=== PATIENT | male | born 1945 | race Caucasian/White ===

== ENCOUNTER → 2024-02-01 | Outpatient (CLI) | payer MEDICARE, BC, SELFPAY | END | disposition home or self-care (01) | LOC: SWHD 09:44 | PROVIDERS: PCP Family Medicine; Referring Provider Family Medicine; Visit Provider Student in an Organized Health Care Education/Training Program | DX: L89.154 Pressure ulcer of sacral region, stage 4 (principal); L97.522 Non-pressure chronic ulcer of other part of left foot with fat layer exposed; L97.422 Non-pressure chronic ulcer of left heel and midfoot with fat layer exposed; Z79.84 Long term (current) use of oral hypoglycemic drugs; G82.20 Paraplegia, unspecified | CPT/HCPCS: 97597; A9270 ==

== ENCOUNTER → 2024-02-05 | Outpatient (CLI) | payer MEDICARE, BC, SELFPAY ==
[2024-02-05 10:50] LABS: Basophils % (Auto) 1 % (0-2.5); Eosinophils # (Auto) 0.3 Thou/mm3 (0.0-0.5); Eosinophils % (Auto) 5 % (0-10); Hemoglobin 13.4 g/dL (13.5-16.0); Immature Granulocytes % (Auto) 0 % (0-0); Lymphocytes % (Auto) 31 % (10-50); Mean Corpuscular HGB Conc 31.2 g/dl (31.0-37.0); Mean Corpuscular Hemoglobin 25.4 pg (25.0-35.0); Mean Corpuscular Volume 81 fL (80-100); Monocytes # (Auto) 0.5 Thou/mm3 (0.0-0.8); Monocytes % (Auto) 8 % (0-12); Neutrophils # (Auto) 3.6 Thou/mm3 (1.8-7.7); Neutrophils % (Auto) 56 % (37-80); Nucleated Red Blood Cell % 0 /100 WBC (0); Platelet Count 226 Thou/mm3 (140-440); RDW Standard Deviation 53.3 fL (35.1-43.9); Red Blood Count 5.28 Miln/mm3 (4.50-5.90); White Blood Count 6.5 Thou/mm3 (3.8-10.6)
[2024-02-05 10:57] LABS: Glucose Estimated Average 171 mg/dL (80-131); Hemoglobin A1C 7.6 % Hgb (4.8-6.0)
[2024-02-05 11:21] LABS: Alanine Aminotransferase 13 U/L (10-49); Albumin/Globulin Ratio 1.8 (1.2-2.2); Alkaline Phosphatase 137 U/L (46-116); Anion Gap 8 (7-16); Aspartate Amino Transferase 16 U/L (0-34); BUN/Creatinine Ratio 20 Ratio (12-20); Bilirubin,Total 0.6 mg/dL (0.3-1.2); Blood Urea Nitrogen 16 mg/dL (9-23); Calcium 8.8 mg/dL (8.3-10.6); Calcium (Corrected) 8.8 mg/dL (8.5-10.1); Carbon Dioxide 28.2 mMol/L (20.0-31.0); Cardiac Risk Estimate 3.8 RATIO (4.0-6.7); Chloride 102 mMol/L (98-107); Cholesterol 179 mg/dL (132-200); Creatinine (Component) 0.8 mg/dL (0.6-1.3); Globulin 2.2 gm/dL (2.3-3.5); Glucose 132 mg/dL (74-106); HDL Cholesterol 47 mg/dL (40-60); LDL Cholesterol,Calculated 109 mg/dL (0-130); Osmolality,Calculated 278 (275-295); Potassium 4.4 mMol/L (3.4-5.1); Sodium 138 mMol/L (136-145); Thyroid Stimulating Hormone 1.65 uIU/mL (0.55-4.78); Total Protein 6.2 gm/dL (5.7-8.2); Triglycerides 113 mg/dL (30-150); eGFR > 60 See Note
[2024-02-05 11:27] LABS: T4 (Thyroxine) 7.8 mcg/dL (4.5-10.9)
== END | disposition home or self-care (01) ==
LOC: SLDO 09:51
PROVIDERS: Referring Provider Family Medicine; Visit Provider Family Medicine
DX: E11.65 Type 2 diabetes mellitus with hyperglycemia (principal); I10 Essential (primary) hypertension
CPT/HCPCS: 36415; 80053; 80061; 83036; 84436; 84443; 85025

== ENCOUNTER → 2024-02-15 | Outpatient (CLI) | payer MEDICARE, BC, SELFPAY | END | disposition home or self-care (01) | PROVIDERS: PCP Family Medicine; Referring Provider Family Medicine; Visit Provider Surgery | DX: L89.154 Pressure ulcer of sacral region, stage 4 (principal); L97.422 Non-pressure chronic ulcer of left heel and midfoot with fat layer exposed; L89.892 Pressure ulcer of other site, stage 2; G82.20 Paraplegia, unspecified; I25.10 Atherosclerotic heart disease of native coronary artery without angina pectoris; I10 Essential (primary) hypertension; Z95.1 Presence of aortocoronary bypass graft; H91.90 Unspecified hearing loss, unspecified ear; E11.9 Type 2 diabetes mellitus without complications; Z79.4 Long term (current) use of insulin | CPT/HCPCS: 11042; A9270 ==

== ENCOUNTER → 2024-02-22 | Outpatient (CLI) | payer MEDICARE, BC, SELFPAY | END | disposition home or self-care (01) | LOC: SWHD 08:57 | PROVIDERS: PCP Family Medicine; Referring Provider Family Medicine; Visit Provider Student in an Organized Health Care Education/Training Program | DX: L89.154 Pressure ulcer of sacral region, stage 4 (principal); L97.422 Non-pressure chronic ulcer of left heel and midfoot with fat layer exposed; L89.892 Pressure ulcer of other site, stage 2; G82.20 Paraplegia, unspecified; I25.10 Atherosclerotic heart disease of native coronary artery without angina pectoris; I10 Essential (primary) hypertension; Z95.1 Presence of aortocoronary bypass graft; H91.90 Unspecified hearing loss, unspecified ear; E11.9 Type 2 diabetes mellitus without complications; Z79.4 Long term (current) use of insulin | CPT/HCPCS: 17250; 11042; A9270 ==

== ENCOUNTER → 2024-02-29 | Outpatient (CLI) | payer MEDICARE, BC, SELFPAY | END | disposition home or self-care (01) | LOC: SWHD 10:23 | PROVIDERS: PCP Family Medicine; Referring Provider Family Medicine; Visit Provider Student in an Organized Health Care Education/Training Program | DX: L89.154 Pressure ulcer of sacral region, stage 4 (principal); L97.422 Non-pressure chronic ulcer of left heel and midfoot with fat layer exposed; L89.893 Pressure ulcer of other site, stage 3; G82.20 Paraplegia, unspecified; I25.10 Atherosclerotic heart disease of native coronary artery without angina pectoris; I10 Essential (primary) hypertension; Z95.1 Presence of aortocoronary bypass graft; H91.90 Unspecified hearing loss, unspecified ear; E11.9 Type 2 diabetes mellitus without complications; Z79.4 Long term (current) use of insulin | CPT/HCPCS: 17250; 11043; A9270 ==

== ENCOUNTER → 2024-03-07 | Outpatient (CLI) | payer MEDICARE, BC, SELFPAY | END | disposition home or self-care (01) | LOC: SWHD 10:26 | PROVIDERS: PCP Family Medicine; Referring Provider Family Medicine; Visit Provider Student in an Organized Health Care Education/Training Program | DX: L89.154 Pressure ulcer of sacral region, stage 4 (principal); L97.422 Non-pressure chronic ulcer of left heel and midfoot with fat layer exposed; L89.892 Pressure ulcer of other site, stage 2; G82.20 Paraplegia, unspecified; I25.10 Atherosclerotic heart disease of native coronary artery without angina pectoris; I10 Essential (primary) hypertension; H91.90 Unspecified hearing loss, unspecified ear; E11.9 Type 2 diabetes mellitus without complications; Z79.4 Long term (current) use of insulin | CPT/HCPCS: 11043; 11042; A9270 ==

== ENCOUNTER 2024-03-08 03:18 | Emergency (ER) | payer MEDICARE, BC, SELFPAY ==
[2024-03-08 03:21] VITALS: BMI 27.8
[2024-03-08 03:23] VITALS: BP 105/70; PULSE 101; RESP 19; TEMP 36.7; O2SAT 96
--- NOTE | 2024-03-08 03:57 | PD.EDADULT ---
ED General RME/HPI General Chief complaint: Wound/Laceration Stated complaint: R LEG HEMORRHAGING Time Seen by Provider: 03/08/24 03:28 Arrival date/time: 03/08/24 03:18 RME / HPI RME / HPI narrative: Dr. Saldana?s Main ED Evaluation: 78yo male with a history of CAD, HTN, HLD, DM, paraplegic BIBA from home presents to the ED for a chief complaint of bleeding to his RLE. Patient states he had a debridement to a wound done at his right calf yesterday, reporting the site started bleeding tonight at home. Patient denies any fever, chills, numbness, tingling or any other associated sympoms. Related Data Home Medications ?Medication ?Instructions ?Recorded ?Confirmed baclofen 20 mg tablet 20 mg PO TID #0 mg 01/04/13 07/13/23 docusate sodium 100 mg capsule 200 mg PO BID #0 mg 01/04/13 07/13/23 (Colace) metoprolol succinate 50 mg 50 mg PO DAILY #0 mg 01/04/13 07/13/23 tablet,extended release 24 hr (Toprol XL) pregabalin 100 mg capsule (Lyrica) 100 mg PO TID #0 mg 01/04/13 07/13/23 celecoxib 200 mg capsule (Celebrex) 200 mg PO BID #0 caps 06/20/15 07/13/23 aspirin 81 mg tablet,delayed 81 mg PO DAILY 11/21/17 07/13/23 release (Enid Low Dose Aspirin) esomeprazole magnesium 20 mg 40 mg PO QDAY 11/21/17 07/13/23 capsule,delayed release (Nexium 24HR) niacin 500 mg tablet,extended 500 mg PO DAILY 11/21/17 07/13/23 release 24 hr benazepril 5 mg tablet 5 mg PO QDAY 08/30/22 07/13/23 dapagliflozin propanediol 10 mg 10 mg PO QDAY 08/30/22 07/13/23 tablet (Farxiga) Previous Rx's ?Medication ?Instructions ?Recorded zinc sulfate 50 mg zinc (220 mg) 220 mg (4.4 x 50 mg zinc (220 mg)) 07/17/23 capsule PO QDAY #90 caps Allergies Allergy/AdvReac Type Severity Reaction Status Date / Time bee venom protein (honey bee) Allergy Severe Anaphylaxis Verified 06/06/23 10:46 levofloxacin Allergy Severe MUSCLE/TENDON Verified 06/06/23 10:46 ATROPHY venom-wasp Allergy Severe ANAPHYLATIC Verified 06/06/23 10:46 sulfamethoxazole Allergy Unknown RASH Verified 06/06/23 10:46 trimethoprim Allergy Unknown RASH Verified 06/06/23 10:46 Review of Systems Review of Systems Systems Reviewed: All systems reviewed, normal except as documented Narrative Review of Systems: Gen: No fever, no chills, no weight loss EYES: No discharge, no visual changes, no pain HEENT: No ear pain, no congestion, no sore throat PULM: No shortness of breath, no cough, no congestion CV: No chest pain, no dyspnea on exertion, no palpitations GI: No nausea, no vomiting, no diarrhea, no pain, no constipation : No frequency, no urgency, no dysuria Musc/skel: No joint pain, no back pain Skin: No rash. Warm and dry. + bleeding to debridement site Psyc: No hallucinations, no depression Heme/Lymph: No easy bleeding or bruising tendencies Neuro: No weakness, no headache Past Medical History Past Medical History NEUROLOGIC: Positive Paralysis; Negative Seizures CARDIAC: Positive Cardiac Disorders, Coronary Artery Disease, Hypercholesterolemia and Hypertension; Negative Congestive Heart Failure RESPIRATORY: Negative Chronic Obstructive Pulmonary Disease (COPD) or Asthma GASTROINTESTINAL: Positive Gastroesophageal Reflux Disease GENITOURINARY: Positive Neurogenic Bladder; Negative Renal Disease MUSCULOSKELETAL: Positive Musculoskeletal Disorders and Arthritis ENDOCRINE: Positive Diabetes Mellitus Type 2; Negative Diabetes Mellitus Type 1 HEMATOLOGIC: Negative Sickle Cell Disease OTHER HISTORY: Negative MRSA or Clostridium Difficile Surgical History SURGICAL: Positive Open Heart Surgery, Coronary Artery Bypass Graft and Coronary Stent; Negative Abdominal Surgery Social History SMOKING STATUS: Never smoker SECOND HAND EXPOSURE: No ED Exam Narrative Physical exam: GENERAL APPEARANCE: alert and oriented x 4, well-developed, well-nourished, no acute distress VITALS: All vitals were reviewed and the pulse ox is 96% on room air, which is normal according to my interpretation. HEENT: Normocephalic, atraumatic; pupils equal, round, reactive to light; EOMI; mucous membranes pink, moist; oropharynx clear NECK: Supple LUNGS: CTABL; no wheezes, no rales, no rhonchi HEART: Regular rate, regular rhythm; normal S1, S2; no murmurs ABDOMEN: non distended; normal BS; soft, no tenderness, no guarding, no rebound; no masses, no organomegaly, no hernia BACK: no CVA tenderness EXTREMITIES: atraumatic; no edema NEUROLOGIC: awake; alert and oriented x4; cranial nerves II-XII grossly intact; no focal sensory or motor deficits PSYCHIATRIC: appropriate mood and affect SKIN: warm, dry, normal color; no rashes; 4x5 cm open wound to the posterior mid calf that has been recently debrided with a tiny area of active bleeding in the inferior portion that was resolved with direct pressure, no swelling, erythema or discharge Course Quality Measures none Vital Signs Vital signs: Vital Signs Temperature 98.1 F 03/08/24 03:23 Pulse Rate 101 H 03/08/24 03:23 Respiratory Rate 19 03/08/24 03:23 Blood Pressure 105/70 03/08/24 03:23 Pulse Oximetry (%) 96 03/08/24 03:23 Oxygen Delivery Method Room Air 03/08/24 03:23 [facility] Patient data External records reviewed:: [facility] previous records (Per chart review, patient was admitted here on 07/13/23 for osteomyelitis.) Clinical information provided by:: patient Social determinants that could affect healthcare access:: none Patient has the following chronic illnesses:: CAD, HTN, HLD, DM, paraplegic How is presenting disease/condition affected by chronic disease/condition?: uneffected by Evaluation data The following diagnostics were reviewed and interpreted by me:: other (specify) (none) Lab and/or radiology exams considered but not ordered:: none Interpretation Summary: none Medications Medications considered but not ordered:: none Medication administrations:: none Consultations Consultation(s) initiated? (list below): No Diagnosis Differential Diagnosis ED Complaint MDM: arterial bleed, venous bleed, cellulitis Most likely diagnosis given after review of the tests above:: see below Admission Indicated Admission indicated?: not indicated Explain why admission is indicated or not indicated:: Admission criteria not met. Admission Request Was there a request for admission?: No Disposition Plan Disposition Plan: Discharge Discharge Attestation Discharge Attestation: The patient and all family members were given an opportunity to ask questions and understood the discharge instructions. Discharge instructions specifically effects, indications for sooner follow up or return to the emergency department, and the expected course of current diagnosis. Patient condition: Stable Medical Decision Making MDM Narrative MDM Narrative: Scribe Attestation: 03/08/24 - Vanessa Nassar am scribing for and in the presence of Dr. Saldana. Differential Diagnosis Differential Diagnosis: arterial bleed, venous bleed, cellulitis Discharge Plan Plan Patient Disposition: HOME (Self Care) Disposition Comment: Stable for discharge Patient condition on transfer: Stable Prescriptions/Referrals Prescriptions/Med Rec: No Action Farxiga 10 mg tablet 10 mg PO QDAY benazepril 5 mg tablet 5 mg PO QDAY metoprolol succinate [Toprol XL] 50 MG tablet extended release 24 hr 50 mg PO DAILY Qty: 0 baclofen 20 MG tablet 20 mg PO TID Qty: 0 docusate sodium [Colace] 100 MG capsule 200 mg PO BID Qty: 0 pregabalin [Lyrica] 100 MG capsule 100 mg PO TID Qty: 0 celecoxib [Celebrex] 200 MG capsule 200 mg PO BID Qty: 0 niacin 500 mg Tablet Extended Release 24 Hr 500 mg PO DAILY aspirin [Enid Low Dose Aspirin] 81 mg Tablet,Delayed Release (Dr/Ec) 81 mg PO DAILY esomeprazole magnesium [Nexium 24HR] 20 mg Capsule,Delayed Release(Dr/Ec) 40 mg PO QDAY zinc sulfate 50 mg zinc (220 mg) Capsule 220 mg PO QDAY Qty: 90 0RF Referrals: [facility] [Outside] - In 1 week Problem List Clinical Impression: Hemorrhage postprocedure Patient/Caregiver Discharge Instructions Discharge Activity: activity as tolerated Education Materials: ED Post Op Wound Check, Bleeding Additional Instructions: Please return to the emergency department for any worsening or any further medical problems You should change your bandage 1 time per day You should follow-up with your primary care doctor within the next several days Print Language: Romansh Stand Alone Forms: Jillian Award Info., Patient Portal Info Letter
[2024-03-08 04:53] VITALS: BP 90/70; PULSE 80; RESP 18; O2SAT 97
--- NOTE | 2024-03-08 05:00 | PC.NURSE ---
pt arrives dressing to R lower leg saturated in blood. Dressing removed. with MD wound inspected and foud to have a small venouse bleeder. Xeroform placed directly to bleeder pressure dressing applied. no further bleeding noted. Bleeding controlled.
[2024-03-08 05:57] VITALS: PULSE 79; RESP 18; TEMP 36.8; O2SAT 98
== END 2024-03-08 07:03 | disposition home or self-care (01) ==
LOC: SERX 06:18
PROVIDERS: Emergency Provider Emergency Medicine; PCP Family Medicine
DX: L76.22 Postprocedural hemorrhage of skin and subcutaneous tissue following other procedure (principal); I10 Essential (primary) hypertension; E11.9 Type 2 diabetes mellitus without complications; I25.10 Atherosclerotic heart disease of native coronary artery without angina pectoris; G82.20 Paraplegia, unspecified; E78.5 Hyperlipidemia, unspecified
CPT/HCPCS: 99281

== ENCOUNTER → 2024-03-14 | Outpatient (CLI) | payer MEDICARE, BC, SELFPAY | END | disposition home or self-care (01) | LOC: SWHD 10:39 | PROVIDERS: PCP Family Medicine; Referring Provider Family Medicine; Visit Provider Student in an Organized Health Care Education/Training Program | DX: I96 Gangrene, not elsewhere classified (principal); L89.154 Pressure ulcer of sacral region, stage 4; L89.892 Pressure ulcer of other site, stage 2; L97.422 Non-pressure chronic ulcer of left heel and midfoot with fat layer exposed; G82.20 Paraplegia, unspecified; I25.10 Atherosclerotic heart disease of native coronary artery without angina pectoris; I10 Essential (primary) hypertension; H91.90 Unspecified hearing loss, unspecified ear; E11.9 Type 2 diabetes mellitus without complications; Z79.4 Long term (current) use of insulin | CPT/HCPCS: 11042; 97597; A9270 ==

== ENCOUNTER 2024-03-28 09:48 | Emergency (ER) | payer MEDICARE, BC, SELFPAY ==
[2024-03-28] VITALS (7 sets, daily range): BP systolic 116–143; BP diastolic 62–72; PULSE 66–92; RESP 12–18; TEMP 36.3–36.7; O2SAT 95–100; BMI 25.1
--- NOTE | 2024-03-28 10:33 | PD.EDWEAK ---
ED Weakness RME/HPI General Chief complaint: Weakness Stated complaint: WEAKNESS Time Seen by Provider: 03/28/24 10:11 Arrival date/time: 03/28/24 09:48 RME / HPI RME / HPI Narrative: Patient is a 78-year-old male with past medical history of hypertension, hyperlipidemia, CAD s/p CABGx3 & stent (followed by Cardio Dr. Bell), type 2 diabetes, paraplegic for last 18 years 2/2 spinal surgery, neurogenic bladder with chronic indwelling Euceda who was brought in by ambulance from home to the ED on 03/28/2024 due to generalized weakness and lethargy for 2 days. Patient is bedbound and lives with his at home. and son are primary caregivers. Patient currently reports feeling tired, denies any pain at this time or any other complaints. present at bedside states that since yesterday morning the patient was noted to be more weak and sleepy than usual when usually he is awake and interactive. Patient does have a chronic indwelling Euceda which is changed monthly, last changed at the beginning of this month by [facility]. Patient is unable to feel any sensations below the waist including in the bladder. He denies any chest pain, shortness of breath, abdominal pain, nausea, vomiting, fevers, chills, sweats, or changes to bowel movements. MD Complaint: generalized weakness Onset (ago): day(s) Duration: constant Related Data Home Medications ?Medication ?Instructions ?Recorded ?Confirmed baclofen 20 mg tablet 20 mg PO TID #0 mg 01/04/13 07/13/23 docusate sodium 100 mg capsule 200 mg PO BID #0 mg 01/04/13 07/13/23 (Colace) metoprolol succinate 50 mg 50 mg PO DAILY #0 mg 01/04/13 07/13/23 tablet,extended release 24 hr (Toprol XL) pregabalin 100 mg capsule (Lyrica) 100 mg PO TID #0 mg 01/04/13 07/13/23 celecoxib 200 mg capsule (Celebrex) 200 mg PO BID #0 caps 06/20/15 07/13/23 aspirin 81 mg tablet,delayed 81 mg PO DAILY 11/21/17 07/13/23 release (Enid Low Dose Aspirin) esomeprazole magnesium 20 mg 40 mg PO QDAY 11/21/17 07/13/23 capsule,delayed release (Nexium 24HR) niacin 500 mg tablet,extended 500 mg PO DAILY 11/21/17 07/13/23 release 24 hr benazepril 5 mg tablet 5 mg PO QDAY 08/30/22 07/13/23 dapagliflozin propanediol 10 mg 10 mg PO QDAY 08/30/22 07/13/23 tablet (Farxiga) Previous Rx's ?Medication ?Instructions ?Recorded zinc sulfate 50 mg zinc (220 mg) 220 mg (4.4 x 50 mg zinc (220 mg)) 07/17/23 capsule PO QDAY #90 caps lorazepam 1 mg tablet (Ativan) 1 mg PO QDAY PRN MRI sedation #2 04/11/24 tabs Allergies Allergy/AdvReac Type Severity Reaction Status Date / Time bee venom protein (honey bee) Allergy Severe Anaphylaxis Verified 03/28/24 10:00 levofloxacin Allergy Severe MUSCLE/TENDON Verified 03/28/24 10:00 ATROPHY venom-wasp Allergy Severe ANAPHYLATIC Verified 03/28/24 10:00 sulfamethoxazole Allergy Unknown RASH Verified 03/28/24 10:00 trimethoprim Allergy Unknown RASH Verified 03/28/24 10:00 Review of Systems Review of Systems Systems Reviewed: All systems reviewed, normal except as documented Past Medical History Past Medical History Comments PMH COMMENT: PMHx: Hard of hearing, elevated BMI, HTN, HLD, CAD s/p CABGx3 & stent (followed by Cardio Dr Bell), diet-controlled DM2 (Dec 2021 A1c 6.3), paraplegic for last 10 years 2/2 spinal surgery, neurogenic bladder with intermittent self-catheterization, recurrent UTIs, chronic sacral decubitus ulcer & B/L foot ulcers s/p numerous I&Ds PSHx: Spine surgeries x 4 for herniated disc (left paraplegic after the last one ~2006), neck surgeries x 2, CABGx3, peripheral endarterectomy, numerous I&Ds FHx: Brother DM2 Social: Wheelchair-bound, lives at home, no EtOH/tobacco/recreationals ED Exam Narrative Physical exam: Physical Exam General: Asleep arousable to voice but quickly falls asleep, in no acute distress. Elderly male otherwise non-toxic appearing. HEENT: Normocephalic, atraumatic, mucous membranes moist. Heart: Regular rate and rhythm, no murmurs. Lungs: Clear to auscultation with no wheezing or crackles. Abdomen: Soft, nondistended, nontender, positive bowel sounds. ?No guarding or rebound tenderness. : Chronic indwelling Euceda catheter in place with clear yellow urine, no clots, sediment, or pus noted. Penis and inguinal region without erythema, excoriation, or purulence, talcum powder layer over skin. Neurologic: Alert and oriented to person, , and place, but not time. Moves bilateral upper extremities, bilateral lower extremity paralysis. Extremities: Left heel with healed calcaneal wound. Skin: No rash or ecchymoses. Course Quality Measures none Orders Category Date Time Status CT Screening NOW Care 03/28/24 13:[address] lower leg RT w con Stat Exams 03/28/24 13:31 Completed C-Reactive Protein Stat Lab 03/28/24 12:20 Completed CBC Stat Lab 03/28/24 12:20 Completed CMP [Comprehensive Metabolic Panel] Stat Lab 03/28/24 12:20 Completed Procalcitonin Stat Lab 03/28/24 12:20 Completed Sed Rate (ESR) Stat Lab 03/28/24 12:20 Completed Urinalysis Stat Lab 03/28/24 12:25 Completed Urine Culture Stat Lab 03/28/24 12:25 Completed Vital Signs Vital signs: Vital Signs Temperature 97.5 F 03/28/24 09:50 Pulse Rate 80 03/28/24 09:50 Respiratory Rate 18 03/28/24 09:50 Blood Pressure 122/72 03/28/24 09:50 Pulse Oximetry (%) 99 03/28/24 09:50 Oxygen Delivery Method Room Air 03/28/24 09:50 Weakness MDM Narrative MDM Narrative:: Patient presents with generalized lethargy and weakness. He has a history of recurrent UTIs given the chronic indwelling Euceda. CBC, CMP, UA, and urine culture will be obtained to determine whether patient has a current UTI which may be contributing to his lethargy. Since the patient cannot feel below the waist he will likely not have any urinary symptoms. He otherwise is not complaining of any pain or other symptoms. Patient data External records reviewed:: [facility] previous records Clinical information provided by:: patient and spouse Social determinants that could affect healthcare access:: none Patient has the following chronic illnesses:: As above How is presenting disease/condition affected by chronic disease/condition?: caused by Evaluation data The following diagnostics were reviewed and interpreted by me:: lab results and radiology exam(s) Lab and/or radiology exams considered but not ordered:: Ordered Interpretation Summary: See MDM narrative. Medications / Prescriptions Medications or Prescriptions considered but not ordered:: Given Medication administrations:: Given Consultations Consultation(s) initiated? (list below): No Consultation #1 (Physician, Specialty, Details): Infectious Diseases, Dr. Khan - Discussed the patient's presentation, findings, and examination. Recommends not to restart IV antibiotics given that the patient was recently on 6 weeks of IV antibiotics via PICC line 7 months ago. He states that patient can resume and be discharged on PO Keflex. The best support to prevent further progression of osteomyelitis is offloading, frequent repositioning, and good wound care. Time: 16:32 Diagnosis Weakness Differential Diagnosis: dehydration and other (UTI) Most likely diagnosis given after review of the tests above:: UTI Admission Indicated Admission indicated?: not indicated Admission Request Was there a request for admission?: No Disposition Plan Disposition Plan: Discharge Discharge Attestation Discharge Attestation: The patient and all family members were given an opportunity to ask questions and understood the discharge instructions. Discharge instructions specifically effects, indications for sooner follow up or return to the emergency department, and the expected course of current diagnosis. Patient condition: Stable Discharge Plan Plan Patient Disposition: HOME (Self Care) Disposition Comment: Stable for discharge home Patient condition on transfer: Stable Prescriptions/Referrals Prescriptions/Med Rec: No Action Farxiga 10 mg tablet 10 mg PO QDAY benazepril 5 mg tablet 5 mg PO QDAY metoprolol succinate [Toprol XL] 50 MG tablet extended release 24 hr 50 mg PO DAILY Qty: 0 baclofen 20 MG tablet 20 mg PO TID Qty: 0 docusate sodium [Colace] 100 MG capsule 200 mg PO BID Qty: 0 pregabalin [Lyrica] 100 MG capsule 100 mg PO TID Qty: 0 celecoxib [Celebrex] 200 MG capsule 200 mg PO BID Qty: 0 niacin 500 mg Tablet Extended Release 24 Hr 500 mg PO DAILY aspirin [Enid Low Dose Aspirin] 81 mg Tablet,Delayed Release (Dr/Ec) 81 mg PO DAILY esomeprazole magnesium [Nexium 24HR] 20 mg Capsule,Delayed Release(Dr/Ec) 40 mg PO QDAY lorazepam [Ativan] 1 mg tablet 1 mg PO QDAY MDD 1mg PRN (Reason: MRI sedation) Qty: 2 0RF Rx Instructions: Take 1 tablet 30-60 mins before MRI for claustrophobia zinc sulfate 50 mg zinc (220 mg) Capsule 220 mg PO QDAY Qty: 90 0RF Referrals: Adrián Tamez MD [Primary Care Provider] - In 1 week Problem List Clinical Impression: Cystitis, Osteomyelitis of right fibula, Weakness generalized Patient/Caregiver Discharge Instructions Education Materials: Osteomyelitis Dc, When to Use Antibiotics, ED Bladder Infection, Male (Adult) Additional Instructions: Today's test results show normal labs, including normal WBC, normal kidney functioning, normal electrolytes, and normal liver functioning. Urinalysis showed that you do have a UTI, however this is a positive finding on almost all of your last visits so it is difficult to tell if it is a true infection or a colony of bacteria. Please have your regular doctor follow up with the result of the urine culture obtained here in the hospital. Since you have a right leg wound, a CT scan was done and results are attached. Please follow up with your wound care doctor at the [facility] as scheduled. Please let your wound care doctor know the results of the CT scan. You will be started on Keflex (cephalexin) for the UTI as well as the possible leg bone infection for the next 1 week. Please ask your wound care doctor if you should continue antibiotics regarding the bone infection. Our Infectious Disease specialist did not recommend more IV antibiotics given that you were recently on several weeks of IV antibiotics in the last 8 months. Please hydrate with oral water as much as you can. Print Language: German Stand Alone Forms: Jillian Award Info., Patient Portal Info Letter
[2024-03-28 12:46] LABS: Collection Type, Urine Catheter
[2024-03-28 13:02] LABS: Basophils % (Auto) 1 % (0-2.5); Eosinophils # (Auto) 0.4 Thou/mm3 (0.0-0.5); Eosinophils % (Auto) 5 % (0-10); Hematocrit 41.5 % (41.0-53.0); Hemoglobin 12.8 g/dL (13.5-16.0); Immature Granulocytes % (Auto) 0 % (0-0); Immature Granulocytes Auto 0.02 Thou/mm3 (0.00-0.00); Lymphocytes # (Auto) 1.5 Thou/mm3 (1.0-4.8); Lymphocytes % (Auto) 23 % (10-50); Mean Corpuscular HGB Conc 30.8 g/dl (31.0-37.0); Mean Corpuscular Hemoglobin 26.9 pg (25.0-35.0); Mean Corpuscular Volume 87 fL (80-100); Monocytes # (Auto) 0.8 Thou/mm3 (0.0-0.8); Monocytes % (Auto) 13 % (0-12); Neutrophils # (Auto) 3.8 Thou/mm3 (1.8-7.7); Neutrophils % (Auto) 59 % (37-80); Nucleated Red Blood Cell % 0 /100 WBC (0); Platelet Count 251 Thou/mm3 (140-440); Red Blood Count 4.76 Miln/mm3 (4.50-5.90); White Blood Count 6.5 Thou/mm3 (3.8-10.6)
[2024-03-28 13:14] LABS: Alanine Aminotransferase 15 U/L (10-49); Albumin, Serum 3.6 gm/dL (3.4-4.8); Albumin/Globulin Ratio 1.3 (1.2-2.2); Alkaline Phosphatase 125 U/L (46-116); Anion Gap 9 (7-16); Aspartate Amino Transferase 24 U/L (0-34); BUN/Creatinine Ratio 16 Ratio (12-20); Bilirubin,Total 0.6 mg/dL (0.3-1.2); Blood Urea Nitrogen 14 mg/dL (9-23); Calcium (Corrected) 9.3 mg/dL (8.5-10.1); Carbon Dioxide 29.4 mMol/L (20.0-31.0); Chloride 102 mMol/L (98-107); Creatinine (Component) 0.9 mg/dL (0.6-1.3); Estimated Creatinine Clearance 69.8 mL/min (>60); Globulin 2.7 gm/dL (2.3-3.5); Glucose 197 mg/dL (74-106); Osmolality,Calculated 284 (275-295); Potassium 4.1 mMol/L (3.4-5.1); Sodium 140 mMol/L (136-145); Total Protein 6.3 gm/dL (5.7-8.2); eGFR > 60 See Note
[2024-03-28 13:16] LABS: Bacteria,Urine 3+; Bilirubin,Urine Negative (Negative); Blood,Urine Negative (Negative); Clarity,Urine Clear (Clear/Hazy); Color,Urine Lt-Yellow (Lt Yel-Yel); Glucose, Urine 4+ (Negative); Ketones,Urine 1+ (Negative); Leukocyte Esterase,Urine Positive (Negative); Nitrite,Urine Negative (Negative); Protein,Urine Negative (Neg - Trace); RBC,Urine 2 /hpf (0-3); Specific Gravity,Urine 1.028 (1.001-1.035); Squamous Epithelial Cell,Urine < 1 /hpf (0-5); Urobilinogen,Urine Negative mg/dL (0.0-1.0); WBC,Urine 36 /hpf (0-5)
--- NOTE | 2024-03-28 13:31 | XR_ITS ---
Examination: CT right lower extremity with intravenous contrast 2-D sagittal reconstructions. 2-D coronal reconstructions. 3-D reconstructions. Date and time of exam:March 28, 2024 1523 hours INDICATIONS: Right lower extremity nonhealing wound in the fibular region CTDI: vol (mGy):11.1 DLP: (mGycm):1273 Technique: Multiple 1.25 mm axial sections of the right lower extremity post intravenous administration 60 cc Isovue-370 have been obtained. 2-D sagittal and coronal reconstructions have been obtained. 3-D reconstructions have been obtained. Low dose protocols were performed. One or more of the following dose reduction techniques were used; automated exposure control, adjustment of the mA and/or KV according to patient size, use of iterative reconstruction technique. Findings: Thick-walled urinary bladder contracted around a Euceda catheter Mild edema in the subcutaneous tissues surrounding the femur and lower leg tibia-fibula Soft tissue defect posterior lower leg which extends to the posterior margin of the fibula Early cortical erosion involving the posterior margin of the fibula axial image 395 No soft tissue abscess No fracture IMPRESSION: Early osteomyelitis posterior fibula as above, recommend MRI lower leg without contrast follow-up
[2024-03-28 14:13] LABS: C-Reactive Protein 1.1 mg/dL (0.0-0.9); Procalcitonin 0.06 ng/ml (0.0-0.49)
[2024-03-28 14:15] LABS: Sed Rate (ESR) 34 mm/hr (0-20)
== END 2024-03-28 20:34 | disposition home or self-care (01) ==
PROVIDERS: Student in an Organized Health Care Education/Training Program; Emergency Provider Emergency Medicine; PCP Family Medicine
DX: E11.69 Type 2 diabetes mellitus with other specified complication (principal); M86.9 Osteomyelitis, unspecified; N30.90 Cystitis, unspecified without hematuria; G82.20 Paraplegia, unspecified; N31.9 Neuromuscular dysfunction of bladder, unspecified; Z96.0 Presence of urogenital implants; Z99.3 Dependence on wheelchair
CPT/HCPCS: 36415; 73701; 80053; 81001; 84145; 85025; 85652; 86140; 87077; 87086; 87186; 99284; A4649; Q9967

== ENCOUNTER → 2024-04-11 | Outpatient (CLI) | payer MEDICARE, BC, SELFPAY | END | disposition home or self-care (01) | PROVIDERS: PCP Family Medicine; Referring Provider Family Medicine; Visit Provider Student in an Organized Health Care Education/Training Program | DX: I96 Gangrene, not elsewhere classified (principal); L89.892 Pressure ulcer of other site, stage 2; L97.522 Non-pressure chronic ulcer of other part of left foot with fat layer exposed; L97.512 Non-pressure chronic ulcer of other part of right foot with fat layer exposed; G82.20 Paraplegia, unspecified; I25.10 Atherosclerotic heart disease of native coronary artery without angina pectoris; I10 Essential (primary) hypertension; H91.90 Unspecified hearing loss, unspecified ear; E11.9 Type 2 diabetes mellitus without complications; Z79.4 Long term (current) use of insulin | CPT/HCPCS: 11042; A9270 ==

== ENCOUNTER → 2024-04-18 | Outpatient (CLI) | payer MEDICARE, BC, SELFPAY | END | disposition home or self-care (01) | PROVIDERS: PCP Family Medicine; Referring Provider Family Medicine; Visit Provider Student in an Organized Health Care Education/Training Program | DX: I96 Gangrene, not elsewhere classified (principal); L89.892 Pressure ulcer of other site, stage 2; L89.154 Pressure ulcer of sacral region, stage 4; L97.521 Non-pressure chronic ulcer of other part of left foot limited to breakdown of skin; L97.512 Non-pressure chronic ulcer of other part of right foot with fat layer exposed; G82.20 Paraplegia, unspecified; Z79.4 Long term (current) use of insulin | CPT/HCPCS: 11042; 17250; 87070; 87075; 87077; 87186; 87205; A9270 ==

== ENCOUNTER → 2024-04-18 | Outpatient (CLI) | payer MEDICARE, BC, SELFPAY | END | disposition home or self-care (01) | PROVIDERS: Referring Provider Student in an Organized Health Care Education/Training Program; Visit Provider Student in an Organized Health Care Education/Training Program | DX: M86.161 Other acute osteomyelitis, right tibia and fibula (principal) | CPT/HCPCS: 87070; 87075; 87077; 87186; 87205 ==

== ENCOUNTER → 2024-04-25 | Outpatient (CLI) | payer MEDICARE, BC, SELFPAY | END | disposition home or self-care (01) | PROVIDERS: PCP Family Medicine; Referring Provider Family Medicine; Visit Provider Student in an Organized Health Care Education/Training Program | DX: I96 Gangrene, not elsewhere classified (principal); L89.154 Pressure ulcer of sacral region, stage 4; L89.892 Pressure ulcer of other site, stage 2; L97.422 Non-pressure chronic ulcer of left heel and midfoot with fat layer exposed; G82.20 Paraplegia, unspecified; I25.10 Atherosclerotic heart disease of native coronary artery without angina pectoris; I10 Essential (primary) hypertension; H91.90 Unspecified hearing loss, unspecified ear; E11.9 Type 2 diabetes mellitus without complications; Z79.4 Long term (current) use of insulin | CPT/HCPCS: 17250; A9270 ==

== ENCOUNTER → 2024-05-02 | Outpatient (CLI) | payer MEDICARE, BC, SELFPAY | END | disposition home or self-care (01) | LOC: SWHD 09:13 | PROVIDERS: PCP Family Medicine; Referring Provider Family Medicine; Visit Provider Student in an Organized Health Care Education/Training Program | DX: I96 Gangrene, not elsewhere classified (principal); L89.154 Pressure ulcer of sacral region, stage 4; L89.892 Pressure ulcer of other site, stage 2; L97.422 Non-pressure chronic ulcer of left heel and midfoot with fat layer exposed; G82.20 Paraplegia, unspecified; I25.10 Atherosclerotic heart disease of native coronary artery without angina pectoris; I10 Essential (primary) hypertension; H91.90 Unspecified hearing loss, unspecified ear; E11.9 Type 2 diabetes mellitus without complications; Z79.4 Long term (current) use of insulin | CPT/HCPCS: 99214; A9270; G0463 ==

== ENCOUNTER → 2024-05-09 | Outpatient (CLI) | payer MEDICARE, BC, SELFPAY | END | disposition home or self-care (01) | LOC: SWHD 10:40 | PROVIDERS: PCP Family Medicine; Referring Provider Family Medicine; Visit Provider Student in an Organized Health Care Education/Training Program | DX: I96 Gangrene, not elsewhere classified (principal); L89.154 Pressure ulcer of sacral region, stage 4; L89.892 Pressure ulcer of other site, stage 2; L97.422 Non-pressure chronic ulcer of left heel and midfoot with fat layer exposed; G82.20 Paraplegia, unspecified; I25.10 Atherosclerotic heart disease of native coronary artery without angina pectoris; I10 Essential (primary) hypertension; H91.90 Unspecified hearing loss, unspecified ear; E11.9 Type 2 diabetes mellitus without complications; Z79.4 Long term (current) use of insulin | CPT/HCPCS: 17250; A9270 ==

== ENCOUNTER → 2024-05-16 | Outpatient (CLI) | payer MEDICARE, BC, SELFPAY | END | disposition home or self-care (01) | LOC: SWHD 10:37 | PROVIDERS: PCP Family Medicine; Referring Provider Family Medicine; Visit Provider Student in an Organized Health Care Education/Training Program | DX: I96 Gangrene, not elsewhere classified (principal); L89.154 Pressure ulcer of sacral region, stage 4; L89.892 Pressure ulcer of other site, stage 2; L97.422 Non-pressure chronic ulcer of left heel and midfoot with fat layer exposed; G82.20 Paraplegia, unspecified; I25.10 Atherosclerotic heart disease of native coronary artery without angina pectoris; I10 Essential (primary) hypertension; H91.90 Unspecified hearing loss, unspecified ear; E11.9 Type 2 diabetes mellitus without complications; Z79.4 Long term (current) use of insulin | CPT/HCPCS: 17250; A9270 ==

== ENCOUNTER → 2024-05-23 | Outpatient (CLI) | payer MEDICARE, BC, SELFPAY | END | disposition home or self-care (01) | LOC: SWHD 10:35 | PROVIDERS: PCP Family Medicine; Referring Provider Family Medicine; Visit Provider Student in an Organized Health Care Education/Training Program | DX: I96 Gangrene, not elsewhere classified (principal); L89.154 Pressure ulcer of sacral region, stage 4; L89.892 Pressure ulcer of other site, stage 2; L97.422 Non-pressure chronic ulcer of left heel and midfoot with fat layer exposed; G82.20 Paraplegia, unspecified; I25.10 Atherosclerotic heart disease of native coronary artery without angina pectoris; I10 Essential (primary) hypertension; H91.90 Unspecified hearing loss, unspecified ear; E11.9 Type 2 diabetes mellitus without complications; Z79.4 Long term (current) use of insulin | CPT/HCPCS: 97597; 17250; A9270 ==

== ENCOUNTER → 2024-06-06 | Outpatient (CLI) | payer MEDICARE, BC, SELFPAY | END | disposition home or self-care (01) | LOC: SWHD 10:18 | PROVIDERS: PCP Family Medicine; Referring Provider Family Medicine; Visit Provider Student in an Organized Health Care Education/Training Program | DX: I96 Gangrene, not elsewhere classified (principal); L89.154 Pressure ulcer of sacral region, stage 4; L89.892 Pressure ulcer of other site, stage 2; L97.522 Non-pressure chronic ulcer of other part of left foot with fat layer exposed; G82.20 Paraplegia, unspecified; I25.10 Atherosclerotic heart disease of native coronary artery without angina pectoris; I10 Essential (primary) hypertension; H91.90 Unspecified hearing loss, unspecified ear; E11.9 Type 2 diabetes mellitus without complications; Z79.4 Long term (current) use of insulin | CPT/HCPCS: 17250; A9270 ==

== ENCOUNTER → 2024-06-10 | Outpatient (CLI) | payer MEDICARE, BC, SELFPAY ==
[2024-06-10 11:45] LABS: Albumin, Serum 3.4 gm/dL (3.4-4.8); Anion Gap 11 (7-16); BUN/Creatinine Ratio 19 Ratio (12-20); Blood Urea Nitrogen 15 mg/dL (9-23); Calcium 7.8 mg/dL (8.3-10.6); Calcium (Corrected) 8.3 mg/dL (8.5-10.1); Carbon Dioxide 24.9 mMol/L (20.0-31.0); Chloride 96 mMol/L (98-107); Creatinine (Component) 0.8 mg/dL (0.6-1.3); Glucose 160 mg/dL (74-106); Osmolality,Calculated 268 (275-295); Phosphorous 3.7 mg/dL (2.4-5.1); Potassium 4.1 mMol/L (3.4-5.1); Sodium 132 mMol/L (136-145); eGFR > 60 See Note
[2024-06-10 12:29] LABS: Glucose Estimated Average 137 mg/dL (80-131); Hemoglobin A1C 6.4 % Hgb (4.8-6.0)
== END | disposition home or self-care (01) ==
LOC: SLDO 10:14
PROVIDERS: Referring Provider Family Medicine; Visit Provider Family Medicine
DX: E11.65 Type 2 diabetes mellitus with hyperglycemia (principal)
CPT/HCPCS: 36415; 80069; 83036

== ENCOUNTER → 2024-06-11 | Outpatient (CLI) | payer MEDICARE, BC, SELFPAY ==
[2024-06-11 13:10] LABS: Microalbumin, Urine Volume 2190 mL/24hr (600-1800)
[2024-06-11 13:49] LABS: Microalbumin, 24hr U mcg/min 73 mg/L (<20); Microalbumin, 24hr U mg/24 105 mg/24hr (<30); Microalbumin, 24hr Urine 48 mg/L (Unavailable)
== END | disposition home or self-care (01) ==
LOC: SLDO 10:38
PROVIDERS: PCP Family Medicine; Referring Provider Family Medicine; Visit Provider Family Medicine
DX: E11.65 Type 2 diabetes mellitus with hyperglycemia (principal)
CPT/HCPCS: 82043

== ENCOUNTER → 2024-06-26 | Outpatient (CLI) | payer MEDICARE, BC, SELFPAY | END | disposition home or self-care (01) | PROVIDERS: PCP Family Medicine; Referring Provider Family Medicine; Visit Provider Student in an Organized Health Care Education/Training Program | DX: I96 Gangrene, not elsewhere classified (principal); L89.892 Pressure ulcer of other site, stage 2; L89.154 Pressure ulcer of sacral region, stage 4; L97.524 Non-pressure chronic ulcer of other part of left foot with necrosis of bone; G82.20 Paraplegia, unspecified; I10 Essential (primary) hypertension; H91.90 Unspecified hearing loss, unspecified ear; E11.9 Type 2 diabetes mellitus without complications; Z79.4 Long term (current) use of insulin | CPT/HCPCS: 11042; 17250; A9270 ==

== ENCOUNTER → 2024-06-26 | Outpatient (CLI) | payer MEDICARE, BC, SELFPAY | END | disposition home or self-care (01) | PROVIDERS: PCP Student in an Organized Health Care Education/Training Program; Referring Provider Student in an Organized Health Care Education/Training Program; Visit Provider Student in an Organized Health Care Education/Training Program | DX: E11.621 Type 2 diabetes mellitus with foot ulcer (principal) | CPT/HCPCS: 87070; 87075; 87077; 87186; 87205 ==

== ENCOUNTER → 2024-07-04 | Outpatient (CLI) | payer MEDICARE, BC, SELFPAY | END | disposition home or self-care (01) | LOC: SWHD 10:30 | PROVIDERS: PCP Family Medicine; Referring Provider Family Medicine; Visit Provider Student in an Organized Health Care Education/Training Program | DX: I96 Gangrene, not elsewhere classified (principal); L89.892 Pressure ulcer of other site, stage 2; L89.154 Pressure ulcer of sacral region, stage 4; L97.524 Non-pressure chronic ulcer of other part of left foot with necrosis of bone; G82.20 Paraplegia, unspecified; I10 Essential (primary) hypertension; H91.90 Unspecified hearing loss, unspecified ear; E11.9 Type 2 diabetes mellitus without complications; Z79.4 Long term (current) use of insulin | CPT/HCPCS: 17250; A9270 ==

== ENCOUNTER → 2024-07-17 | Outpatient (CLI) | payer MEDICARE, BC, SELFPAY ==
--- NOTE | 2024-07-17 09:30 | XR_ITS ---
Examination: Toes, left foot 3 views Technique: Toes AP oblique lateral 3 views Date and time of exam: July 17, 2024 0948 hours INDICATIONS: First digit pain months. FINDINGS: Severe osteopenia Mild bunion deformity Mild to moderate osteoarthritis first metatarsophalangeal joint The films are underpenetrated There is significant osteoarthritis interphalangeal joint first digit IMPRESSION: Significant osteoarthritis interphalangeal joint first digit
== END | disposition home or self-care (01) ==
LOC: CDIM 09:16
PROVIDERS: PCP Family Medicine; Referring Provider Student in an Organized Health Care Education/Training Program; Visit Provider Student in an Organized Health Care Education/Training Program
DX: M21.612 Bunion of left foot (principal); M19.072 Primary osteoarthritis, left ankle and foot
CPT/HCPCS: 73660

== ENCOUNTER → 2024-07-25 | Outpatient (CLI) | payer MEDICARE, BC, SELFPAY | END | disposition home or self-care (01) | LOC: SWHD 13:16 | PROVIDERS: PCP Family Medicine; Referring Provider Family Medicine; Visit Provider Student in an Organized Health Care Education/Training Program | DX: I96 Gangrene, not elsewhere classified (principal); L89.892 Pressure ulcer of other site, stage 2; L89.154 Pressure ulcer of sacral region, stage 4; L97.522 Non-pressure chronic ulcer of other part of left foot with fat layer exposed; G82.20 Paraplegia, unspecified; I10 Essential (primary) hypertension; H91.90 Unspecified hearing loss, unspecified ear; E11.9 Type 2 diabetes mellitus without complications; Z79.4 Long term (current) use of insulin | CPT/HCPCS: 17250; A9270 ==

== ENCOUNTER → 2024-08-22 | Outpatient (CLI) | payer MEDICARE, BC, SELFPAY | END | disposition home or self-care (01) | LOC: SWHD 13:13 | PROVIDERS: PCP Family Medicine; Referring Provider Family Medicine; Visit Provider Student in an Organized Health Care Education/Training Program | DX: I96 Gangrene, not elsewhere classified (principal); L89.154 Pressure ulcer of sacral region, stage 4; L97.522 Non-pressure chronic ulcer of other part of left foot with fat layer exposed; G82.20 Paraplegia, unspecified; I10 Essential (primary) hypertension; H91.90 Unspecified hearing loss, unspecified ear; E11.9 Type 2 diabetes mellitus without complications; Z79.4 Long term (current) use of insulin | CPT/HCPCS: 99213; G0463 ==

== ENCOUNTER → 2024-09-02 | Outpatient (CLI) | payer MEDICARE, BC, SELFPAY ==
[2024-09-02 16:39] LABS: Glucose Estimated Average 120 mg/dL (80-131); Hemoglobin A1C 5.8 % Hgb (4.8-6.0)
[2024-09-02 16:48] LABS: Alanine Aminotransferase 11 U/L (10-49); Albumin, Serum 3.3 gm/dL (3.4-4.8); Albumin/Globulin Ratio 1.6 (1.2-2.2); Alkaline Phosphatase 99 U/L (46-116); Anion Gap 10 (7-16); Aspartate Amino Transferase 22 U/L (0-34); BUN/Creatinine Ratio 14 Ratio (12-20); Bilirubin,Total 1.1 mg/dL (0.3-1.2); Blood Urea Nitrogen 11 mg/dL (9-23); Calcium 8.0 mg/dL (8.3-10.6); Calcium (Corrected) 8.6 mg/dL (8.5-10.1); Carbon Dioxide 24.7 mMol/L (20.0-31.0); Chloride 101 mMol/L (98-107); Creatinine (Component) 0.8 mg/dL (0.6-1.3); Globulin 2.1 gm/dL (2.3-3.5); Glucose 135 mg/dL (74-106); Osmolality,Calculated 273 (275-295); Potassium 4.2 mMol/L (3.4-5.1); Sodium 136 mMol/L (136-145); Total Protein 5.4 gm/dL (5.7-8.2); eGFR > 60 See Note
== END | disposition home or self-care (01) ==
LOC: SLDO 15:22
PROVIDERS: PCP Family Medicine; Referring Provider Family Medicine; Visit Provider Family Medicine
DX: E11.65 Type 2 diabetes mellitus with hyperglycemia (principal)
CPT/HCPCS: 36415; 80053; 83036

== ENCOUNTER → 2024-09-12 | Outpatient (CLI) | payer MEDICARE, BC, SELFPAY | END | disposition home or self-care (01) | LOC: SWHD 12:45 | PROVIDERS: PCP Family Medicine; Referring Provider Family Medicine; Visit Provider Student in an Organized Health Care Education/Training Program | DX: I96 Gangrene, not elsewhere classified (principal); L89.154 Pressure ulcer of sacral region, stage 4; L97.522 Non-pressure chronic ulcer of other part of left foot with fat layer exposed; G82.20 Paraplegia, unspecified; I10 Essential (primary) hypertension; H91.90 Unspecified hearing loss, unspecified ear; E11.9 Type 2 diabetes mellitus without complications; Z79.4 Long term (current) use of insulin | CPT/HCPCS: 97597; A9270 ==

== ENCOUNTER → 2024-10-03 | Outpatient (CLI) | payer MEDICARE, BC, SELFPAY | END | disposition home or self-care (01) | LOC: SWHD 10:29 | PROVIDERS: PCP Family Medicine; Referring Provider Family Medicine; Visit Provider Student in an Organized Health Care Education/Training Program | DX: I96 Gangrene, not elsewhere classified (principal); L97.522 Non-pressure chronic ulcer of other part of left foot with fat layer exposed; L89.894 Pressure ulcer of other site, stage 4; S91.101A Unspecified open wound of right great toe without damage to nail, initial encounter; X58.XXXA Exposure to other specified factors, initial encounter; G82.20 Paraplegia, unspecified; I10 Essential (primary) hypertension; H91.90 Unspecified hearing loss, unspecified ear; E11.9 Type 2 diabetes mellitus without complications; Z79.4 Long term (current) use of insulin | CPT/HCPCS: 99213; A9270; G0463 ==

== ENCOUNTER → 2024-10-24 | Outpatient (CLI) | payer MEDICARE, BC, SELFPAY | END | disposition home or self-care (01) | LOC: SWHD 10:17 | PROVIDERS: PCP Family Medicine; Referring Provider Family Medicine; Visit Provider Student in an Organized Health Care Education/Training Program | DX: I96 Gangrene, not elsewhere classified (principal); L97.522 Non-pressure chronic ulcer of other part of left foot with fat layer exposed; S91.101A Unspecified open wound of right great toe without damage to nail, initial encounter; S91.102A Unspecified open wound of left great toe without damage to nail, initial encounter; X58.XXXA Exposure to other specified factors, initial encounter; G82.20 Paraplegia, unspecified; I10 Essential (primary) hypertension; H91.90 Unspecified hearing loss, unspecified ear; E11.9 Type 2 diabetes mellitus without complications; Z79.4 Long term (current) use of insulin | CPT/HCPCS: 99213; A9270; G0463 ==

== ENCOUNTER → 2024-11-14 | Outpatient (CLI) | payer MEDICARE, BC, SELFPAY | END | disposition home or self-care (01) | LOC: SWHD 10:07 | PROVIDERS: PCP Family Medicine; Referring Provider Family Medicine; Visit Provider Student in an Organized Health Care Education/Training Program | DX: I96 Gangrene, not elsewhere classified (principal); L97.522 Non-pressure chronic ulcer of other part of left foot with fat layer exposed; S91.101A Unspecified open wound of right great toe without damage to nail, initial encounter; S91.102A Unspecified open wound of left great toe without damage to nail, initial encounter; X58.XXXA Exposure to other specified factors, initial encounter; G82.20 Paraplegia, unspecified; I10 Essential (primary) hypertension; H91.90 Unspecified hearing loss, unspecified ear; E11.9 Type 2 diabetes mellitus without complications; Z79.4 Long term (current) use of insulin | CPT/HCPCS: 99214; A9270; G0463 ==

== ENCOUNTER → 2024-12-05 | Outpatient (CLI) | payer MEDICARE, BC, SELFPAY | END | disposition home or self-care (01) | LOC: SWHD 10:09 | PROVIDERS: PCP Family Medicine; Referring Provider Family Medicine; Visit Provider Student in an Organized Health Care Education/Training Program | DX: I96 Gangrene, not elsewhere classified (principal); L97.522 Non-pressure chronic ulcer of other part of left foot with fat layer exposed; S91.102A Unspecified open wound of left great toe without damage to nail, initial encounter; S91.101A Unspecified open wound of right great toe without damage to nail, initial encounter; S91.104A Unspecified open wound of right lesser toe(s) without damage to nail, initial encounter; X58.XXXA Exposure to other specified factors, initial encounter; L89.619 Pressure ulcer of right heel, unspecified stage; G82.20 Paraplegia, unspecified; I10 Essential (primary) hypertension; M19.071 Primary osteoarthritis, right ankle and foot; H91.90 Unspecified hearing loss, unspecified ear; E11.9 Type 2 diabetes mellitus without complications; Z79.4 Long term (current) use of insulin | CPT/HCPCS: 99214; A9270; G0463 ==

== ENCOUNTER → 2024-12-26 | Outpatient (CLI) | payer MEDICARE, BC, SELFPAY | END | disposition home or self-care (01) | LOC: SWHD 10:15 | PROVIDERS: PCP Family Medicine; Referring Provider Family Medicine; Visit Provider Student in an Organized Health Care Education/Training Program | DX: I96 Gangrene, not elsewhere classified (principal); L97.522 Non-pressure chronic ulcer of other part of left foot with fat layer exposed; S91.101A Unspecified open wound of right great toe without damage to nail, initial encounter; S91.102A Unspecified open wound of left great toe without damage to nail, initial encounter; X58.XXXA Exposure to other specified factors, initial encounter; L89.619 Pressure ulcer of right heel, unspecified stage; G82.20 Paraplegia, unspecified; I10 Essential (primary) hypertension; H91.90 Unspecified hearing loss, unspecified ear; E11.9 Type 2 diabetes mellitus without complications; Z79.4 Long term (current) use of insulin | CPT/HCPCS: 99215; A9270; G0463 ==

== ENCOUNTER 2024-12-28 20:01 | Emergency (ER) | payer MEDICARE, BC, SELFPAY ==
[2024-12-28 20:19] VITALS: PULSE 96; RESP 16; O2SAT 95
[2024-12-28 20:24] VITALS: BMI 28.7
[2024-12-28 20:26] VITALS: BP 165/80; PULSE 72; RESP 16; TEMP 36.4; O2SAT 96
--- NOTE | 2024-12-28 20:34 | XR_ITS ---
Examination: CT abdomen with intravenous contrast CT pelvis with intravenous contrast 2-D coronal reconstructions 2-D sagittal reconstructions Date and time of exam: December 18, 2024, 11:03 p.m. INDICATIONS: Episodes of hematuria today. CTDI: vol (mGy) 34.21 DLP: (mGycm) 1454 Technique: Multiple axial sections of the abdomen and pelvis have been obtained. 64 slice high-resolution scanner used. 3 mm axial sections have been obtained, post intravenous injection 60 cc Isovue 370 2-D sagittal, coronal reconstructions obtained. Low dose protocols were performed. One or more of the following dose reduction techniques were used; automated exposure control, adjustment of the mA and/or KV according to patient size, use of iterative reconstruction technique. Findings: Small retrocardiac gastric hernia Gallbladder not visualized Splenic calcifications No pancreatic or adrenal mass Bilateral renal cysts, the largest 7.7 cm lower pole left kidney No renal or ureteral calculi, no hydronephrosis Aortic calcification no aneurysmal dilatation No pericecal inflammatory change Marked abnormal thickening of the urinary bladder wall measuring up to 13 mm Abundant stool in the rectum Mild prostatomegaly Severe osteopenia IMPRESSION: Bilateral renal cysts No renal or ureteral calculi, no hydronephrosis Abnormal thickening of the urinary bladder wall, differential would include cystitis, bladder carcinoma
--- NOTE | 2024-12-28 20:35 | PD.EDADULT ---
ED General RME/HPI General Chief complaint: General Adult/Misc Complain Stated complaint: BLOOD IN CATHETER Time Seen by Provider: 12/28/24 20:20 Arrival date/time: 12/28/24 20:01 79-year-old male patient with significant history of CAD status post CABG and stent, hypertension, hyperlipidemia, paraplegia for the last 12 years, neurogenic bladder with chronic Euceda and recurrent urinary tract infection, type 2 diabetes, was brought in by EMS for evaluation regarding gross hematuria. According to the patient has been having gross hematuria in his Euceda catheter for more than an hour now, the only emptied the bag that was full with gross hematuria. Patient denies any fever denies any cough denies any pain. Patient is only taking aspirin 81 mg daily. Denies any tugging of the Euceda catheter. Related Data Home Medications ?Medication ?Instructions ?Recorded ?Confirmed baclofen 20 mg tablet 20 mg PO TID #0 mg 01/04/13 07/13/23 docusate sodium 100 mg capsule 200 mg PO BID #0 mg 01/04/13 07/13/23 (Colace) metoprolol succinate 50 mg 50 mg PO DAILY #0 mg 01/04/13 07/13/23 tablet,extended release 24 hr (Toprol XL) pregabalin 100 mg capsule (Lyrica) 100 mg PO TID #0 mg 01/04/13 07/13/23 celecoxib 200 mg capsule (Celebrex) 200 mg PO BID #0 caps 06/20/15 07/13/23 aspirin 81 mg tablet,delayed 81 mg PO DAILY 11/21/17 07/13/23 release (Enid Low Dose Aspirin) esomeprazole magnesium 20 mg 40 mg PO QDAY 11/21/17 07/13/23 capsule,delayed release (Nexium 24HR) niacin 500 mg tablet,extended 500 mg PO DAILY 11/21/17 07/13/23 release 24 hr benazepril 5 mg tablet 5 mg PO QDAY 08/30/22 07/13/23 dapagliflozin propanediol 10 mg 10 mg PO QDAY 08/30/22 07/13/23 tablet (Farxiga) Previous Rx's ?Medication ?Instructions ?Recorded zinc sulfate 50 mg zinc (220 mg) 220 mg (4.4 x 50 mg zinc (220 mg)) 07/17/23 capsule PO QDAY #90 caps lorazepam 1 mg tablet (Ativan) 1 mg PO QDAY PRN MRI sedation #2 04/11/24 tabs Allergies Allergy/AdvReac Type Severity Reaction Status Date / Time bee venom protein (honey bee) Allergy Severe Anaphylaxis Verified 03/28/24 10:00 levofloxacin Allergy Severe MUSCLE/TENDON Verified 03/28/24 10:00 ATROPHY venom-wasp Allergy Severe ANAPHYLATIC Verified 03/28/24 10:00 sulfamethoxazole Allergy Unknown RASH Verified 03/28/24 10:00 trimethoprim Allergy Unknown RASH Verified 03/28/24 10:00 Review of Systems Review of Systems Narrative Review of Systems: Review of system reviewed and within normal limits except mentioned in HPI ED Exam Narrative Physical exam: VITAL SIGNS: Reviewed. GENERAL APPEARANCE: Alert and interactive, follows commands, no acute distress, HEAD AND FACE: Non-traumatic. ENT: PERRL, pink conjunctivitis, eyelid no trauma, Mucous membrane moist. NECK: Supple, nontender, no nuchal rigidity. CHEST: No tenderness, no crepitus, no paradoxical movement, no retractions. LUNGS: Clear, well ventilated, symmetric, no rales, no wheezing, no ronchi, no stridor, good breath sounds bilaterally. HEART: Regular rate, regular rhythm, no murmur, no gallops. ABDOMEN: Soft, positive bowel sounds, nondistended, no guarding, nontender, no rebound, no masses, RECTAL: Deferred. GENITAL: Euceda catheter intact, with gross hematuria noted no blood clots noted NEUROLOGICAL: Gross motor function intact sensory function intact upper extremity, umbilicus down noted anesthesia MUSCULOSKELETAL: low back nontender, full range of motion. EXTREMITIES: Bilateral lower extremity atrophy, negative range of motion. SKIN: Color pink, dry, no rash, no lacerations, no abrasions, no contusions. LYMPHATICS: Deferred. Course Quality Measures none Orders Category Date Time Status CT Screening NOW Care 12/28/24 20:34 Active Euceda [Urinary Catheter] QS Care 12/28/24 20:28 Active Miscellaneous Nursing Order NOW Care 12/28/24 20:[address] abdomen pelvis w con Stat Exams 12/28/24 20:34 Ordered CBC Stat Lab 12/28/24 20:30 Completed Comprehensive Metabolic Panel Stat Lab 12/28/24 20:30 Completed Partial Thromboplastin Time Stat Lab 12/28/24 20:30 Completed Prothrombin Time with INR Stat Lab 12/28/24 20:30 Completed Type and Screen Stat Lab 12/28/24 20:48 Completed Urinalysis Stat Lab 12/28/24 20:52 Completed Acetaminophen Krissy [Tylenol Krissy] Med 12/28/24 21:44 Discontinued 650 mg PO X1 ONE Ringers Lactated 1000 ml [Lactated Ringers] 1,000 ml Med 12/28/24 20:33 Discontinued IV 999 mls/hr Vital Signs Vital signs: Vital Signs Temperature 97.6 F 12/28/24 20:26 Pulse Rate 72 12/28/24 20:26 Respiratory Rate 16 12/28/24 20: Blood Pressure 165/80 H 12/28/24 20:26 Pulse Oximetry (%) 96 12/28/24 20:26 Oxygen Delivery Method Room Air 12/28/24 20:26 Discharge Plan Prescriptions/Referrals Prescriptions/Med Rec: No Action Farxiga 10 mg tablet 10 mg PO QDAY benazepril 5 mg tablet 5 mg PO QDAY metoprolol succinate [Toprol XL] 50 MG tablet extended release 24 hr 50 mg PO DAILY Qty: 0 baclofen 20 MG tablet 20 mg PO TID Qty: 0 docusate sodium [Colace] 100 MG capsule 200 mg PO BID Qty: 0 pregabalin [Lyrica] 100 MG capsule 100 mg PO TID Qty: 0 celecoxib [Celebrex] 200 MG capsule 200 mg PO BID Qty: 0 niacin 500 mg Tablet Extended Release 24 Hr 500 mg PO DAILY aspirin [Enid Low Dose Aspirin] 81 mg Tablet,Delayed Release (Dr/Ec) 81 mg PO DAILY esomeprazole magnesium [Nexium 24HR] 20 mg Capsule,Delayed Release(Dr/Ec) 40 mg PO QDAY lorazepam [Ativan] 1 mg tablet 1 mg PO QDAY MDD 1mg PRN (Reason: MRI sedation) Qty: 2 0RF Rx Instructions: Take 1 tablet 30-60 mins before MRI for claustrophobia zinc sulfate 50 mg zinc (220 mg) Capsule 220 mg PO QDAY Qty: 90 0RF Referrals: Adrián Tamez MD [Primary Care Provider, Family Practice] - In 1 week Problem List Clinical Impression: Gross hematuria Patient/Caregiver Discharge Instructions Print Language: Estonian MDM Narrative MDM hospital course (for use when minimal MDM required): 12/28/24 20:01 79-year-old male patient with significant history of CAD status post CABG and stent, hypertension, hyperlipidemia, paraplegia for the last 12 years, neurogenic bladder with chronic Euceda and recurrent urinary tract infection, type 2 diabetes, was brought in by EMS for evaluation regarding gross hematuria. According to the patient has been having gross hematuria in his Euceda catheter for more than an hour now, the only emptied the bag that was full with gross hematuria. Patient denies any fever denies any cough denies any pain. Patient is only taking aspirin 81 mg daily. Denies any tugging of the Euceda catheter. Patient Euceda catheter was removed and replaced with three-way Euceda for continuous bladder irrigation. Still on continuous bladder irrigation, is getting clear as compared to earlier. Pending CT scan of the abdomen pelvis Patient's hemoglobin came back with no sign of anemia inside it was 18.5 hematocrit of 54.6 CMP unremarkable urinalysis showed positive leukocyte esterase WBC count is 5359 and urine WBC of 50. No bacteria seen Pending disposition, and CT scan results Care transferred to Dr. Tobin at 11 PM for final disposition Medication Administration(s) Medication Administration History Discontinued Medications Acetaminophen (Acetaminophen Krissy 325 Mg/10 Ml Udc) 650 mg PO X1 ONE Stop: 12/28/24 21:45 Last Admin: 12/28/24 22:07 Dose: 650 mg Documented By: JAYRO Lactated Ringer's (Lactated Ringers) 1,000 mls @ 999 mls/hr IV .Q1H1M ONE Stop: 12/28/24 21:33 Last Infusion: 12/28/24 22:06 Dose: Infused Documented By: Admin: 12/28/24 20:48 Dose: 999 mls/hr Documented By: ANJANA
[2024-12-28] MEDS: RINGERS LACTATED 1000 ML 1,000 ML 999 ML IV (20:48)
[2024-12-28 21:15] LABS: Collection Type, Urine Clean Catch
[2024-12-28 21:19] LABS: Basophils # (Auto) 0.0 Thou/mm3 (0.0-0.2); Basophils % (Auto) 1 % (0-2.5); Eosinophils # (Auto) 0.5 Thou/mm3 (0.0-0.5); Eosinophils % (Auto) 6 % (0-10); Hematocrit 54.6 % (41.0-53.0); Hemoglobin 18.5 g/dL (13.5-16.0); Immature Granulocytes Auto 0.03 Thou/mm3 (0.00-0.00); Lymphocytes # (Auto) 1.8 Thou/mm3 (1.0-4.8); Lymphocytes % (Auto) 21 % (10-50); Mean Corpuscular HGB Conc 33.9 g/dl (31.0-37.0); Mean Corpuscular Hemoglobin 32.2 pg (25.0-35.0); Mean Corpuscular Volume 95 fL (80-100); Monocytes # (Auto) 0.5 Thou/mm3 (0.0-0.8); Monocytes % (Auto) 6 % (0-12); Neutrophils # (Auto) 5.5 Thou/mm3 (1.8-7.7); Neutrophils % (Auto) 66 % (37-80); Nucleated Red Blood Cell # 0.00 Thou/mm3 (0.00-0.00); Nucleated Red Blood Cell % 0 /100 WBC (0); Platelet Count 177 Thou/mm3 (140-440); RDW Standard Deviation 47.8 fL (35.1-43.9); Red Blood Count 5.74 Miln/mm3 (4.50-5.90); White Blood Count 8.4 Thou/mm3 (3.8-10.6)
[2024-12-28 21:26] LABS: Bilirubin,Urine Negative (Negative); Blood,Urine 3+ (Negative); Glucose, Urine 4+ (Negative); Ketones,Urine Negative (Negative); Leukocyte Esterase,Urine Positive (Negative); Nitrite,Urine Negative (Negative); PH,Urine 6.5 (5.0-7.0); Protein,Urine 2+ (Neg - Trace); RBC,Urine 5359 /hpf (0-3); Specific Gravity,Urine 1.011 (1.001-1.035); Urobilinogen,Urine Negative mg/dL (0.0-1.0); WBC,Urine 50 /hpf (0-5)
[2024-12-28 21:30] LABS: Clarity,Urine Turbid (Clear/Hazy); Color,Urine Drk Red (Lt Yel-Yel)
[2024-12-28 21:31] LABS: Squamous Epithelial Cell,Urine 3 /hpf (0-5)
[2024-12-28 21:39] LABS: INR 1.0 (0.9-1.3); Partial Thromboplastin Time 29.6 Seconds (22.0-36.0); Prothrombin Time 10.9 Seconds (9.0-12.2)
[2024-12-28 21:45] LABS: Alanine Aminotransferase 13 U/L (10-49); Albumin, Serum 4.2 gm/dL (3.4-4.8); Albumin/Globulin Ratio 1.6 (1.2-2.2); Alkaline Phosphatase 126 U/L (46-116); Anion Gap 9 (7-16); Aspartate Amino Transferase 27 U/L (0-34); BUN/Creatinine Ratio 13 Ratio (12-20); Bilirubin,Total 0.7 mg/dL (0.3-1.2); Blood Urea Nitrogen 10 mg/dL (9-23); Calcium 9.4 mg/dL (8.3-10.6); Calcium (Corrected) 9.4 mg/dL (8.5-10.1); Carbon Dioxide 28.0 mMol/L (20.0-31.0); Chloride 98 mMol/L (98-107); Creatinine (Component) 0.8 mg/dL (0.6-1.3); Estimated Creatinine Clearance 84.8 mL/min (>60); Globulin 2.6 gm/dL (2.3-3.5); Glucose 138 mg/dL (74-106); Osmolality,Calculated 271 (275-295); Potassium 4.9 mMol/L (3.4-5.1); Sodium 135 mMol/L (136-145); Total Protein 6.8 gm/dL (5.7-8.2); eGFR > 60 See Note
[2024-12-28] MEDS: ACETAMINOPHEN SOL 325 MG/10 ML UDC 650 MG PO (22:07)
[2024-12-28 23:07] VITALS: TEMP 36.7
--- NOTE | 2024-12-28 23:26 | PD.EDADDENDU ---
Emergency Room Addendum Addendum Narrative: 2300: Care assumed from Damian Lorenzana NP, (emergency mid-level provider). Past medical, surgical, social and family history reviewed. Vitals and home medications reviewed. Results and treatment plan discussed. I will assume the care of the patient at this time and will follow the patient, pending Abdomen/Pelvis CT. RADIOLOGY Abdomen/Pelvis: Findings: Small retrocardiac gastric hernia Gallbladder not visualized Splenic calcifications No pancreatic or adrenal mass Bilateral renal cysts, the largest 7.7 cm lower pole left kidney No renal or ureteral calculi, no hydronephrosis Aortic calcification no aneurysmal dilatation No pericecal inflammatory change Marked abnormal thickening of the urinary bladder wall measuring up to 13 mm Abundant stool in the rectum Mild prostatomegaly Severe osteopenia IMPRESSION: Bilateral renal cysts No renal or ureteral calculi, no hydronephrosis Abnormal thickening of the urinary bladder wall, differential would include cystitis, bladder carcinoma 01:22 - Assumed care of this pleasant 79 y/o male with prev CABG type ii dm recurrent uti with baseline para and indwelling carroll catheter now presenting with gross hematuria x 1 day. Laboratory markers demonstrate normal WBC. Patient is hemoconcentrated with hemoglobin of 18.5. Serum chemistries demonstrated normal renal function and mildly elevated blood sugar of 138. UA demonstrates gross hematuria with 50 WBC/hpf, no urine bacteria. Patient was hydrated with LR and CBI began, currently on second bag with persistent passage of clots. Abdomen/Pelvis CT obtained demonstrates possible neoplastic bladder process in which patient will likely require cystoscopy and biopsy and will seek to transfer for urological services. Final diagnoses include painless gross hematuria and R/O bladder mass.
[2024-12-29] VITALS (13 sets, daily range): BP systolic 110–143; BP diastolic 58–92; PULSE 67–105; RESP 12–21; TEMP 36.4–36.7; O2SAT 93–98
--- NOTE | 2024-12-29 03:07 | PC.NURSE ---
FAMILY CONTACT INFORMATION: KALEIGH TOSCANO [phone]
--- NOTE | 2024-12-29 03:42 | PD.EDADDENDU ---
Emergency Room Addendum Addendum Narrative: 04:42 - After discussion with urologist who suggested manual irrigation, this was performed and urine flow appears to be clearing. No further clot formation noted. Patient remains hemodynamically stable. Will repeat CBC and if normal will discharge to [facility]. Recommend f/u by personal urologist in 3-5 days. Precautionary instructions issued.
--- NOTE | 2024-12-29 03:56 | XR_ITS ---
EXAMINATION: AP chest single view TECHNIQUE: AP portable semiupright chest single view Date and time: December 29, 2024, 0358 hours, comparison December 15, 2021 INDICATIONS: Shortness of breath today. FINDINGS: CABG Normal heart size No pneumonia or pulmonary edema Moderate osteopenia IMPRESSION: No pneumonia or pulmonary edema
[2024-12-29] MEDS: cefTRIAXone/D5w 1gm IV premix 1 GM/50 ML BAG IV (04:17)
[2024-12-29 05:22] LABS: Basophils # (Auto) 0.0 Thou/mm3 (0.0-0.2); Basophils % (Auto) 1 % (0-2.5); Eosinophils # (Auto) 0.3 Thou/mm3 (0.0-0.5); Eosinophils % (Auto) 4 % (0-10); Hematocrit 51.0 % (41.0-53.0); Hemoglobin 17.1 g/dL (13.5-16.0); Immature Granulocytes Auto 0.03 Thou/mm3 (0.00-0.00); Lymphocytes # (Auto) 1.6 Thou/mm3 (1.0-4.8); Lymphocytes % (Auto) 18 % (10-50); Mean Corpuscular HGB Conc 33.5 g/dl (31.0-37.0); Mean Corpuscular Hemoglobin 31.7 pg (25.0-35.0); Mean Corpuscular Volume 95 fL (80-100); Monocytes # (Auto) 0.8 Thou/mm3 (0.0-0.8); Monocytes % (Auto) 9 % (0-12); Neutrophils # (Auto) 5.8 Thou/mm3 (1.8-7.7); Neutrophils % (Auto) 68 % (37-80); Nucleated Red Blood Cell # 0.00 Thou/mm3 (0.00-0.00); Nucleated Red Blood Cell % 0 /100 WBC (0); Platelet Count 170 Thou/mm3 (140-440); RDW Standard Deviation 48.0 fL (35.1-43.9); Red Blood Count 5.39 Miln/mm3 (4.50-5.90); White Blood Count 8.6 Thou/mm3 (3.8-10.6)
--- NOTE | 2024-12-29 06:35 | PD.EDADDENDU ---
Emergency Room Addendum <Qian Del Castillo MD - Last Filed: 12/29/24 15:53> Addendum Narrative: Patient is a 78-year-old male with medical history notable for paraplegia, lives in the emergency room with concerns for gross hematuria. Prior providers evaluated patient. Ordered labs CT abdomen pelvis with contrast. We also consulted patient's urology team at [facility], they recommended CBI to be run until urine was clot free. Patient had been on CBI overnight, urine cleared, patient remained hemodynamically stable. UA showed urinary tract infection antibiotics provided. CT scan showed cystitis versus bladder cancer. CBI running clear, catheter exchanged to patient's indwelling Euceda catheter and patient having gross hematuria again following discontinuation of CBI. Given this patient did not feel comfortable being discharged to home. Spoke with patient and patient's nurse, will monitor the patient and see if urine starts to run clear again on its own, if not we will initiate CBI again. Following CBI, patient's urine cleared however given that previously during CBI patient's urine cleared and then transition back to gross hematuria. Patient has undergone 4 rounds of CBI, a total of 12 bags. Despite this patient is having ongoing gross hematuria. Will initiate transfer for urology. Will continue with CBI. 1300: [facility] reviewing case for possible transfer. 1447: Discussed test HPI, PMHx, lab, radiology results and/or management with urologist Dr. Loera. Accepts the patient for transfer. 1455: Discussed test HPI, PMHx, lab, radiology results and/or management with Dr. Mata, accepts patient in transfer ED to ED. Updated patient at bedside, in agreement with treatment plan. Critical Care: 60 mins Due to a high probability of clinically significant, life threatening deterioration, the patient required my highest level of preparedness to intervene emergently and I personally spent this critical care time directly and personally managing the patient. This critical care time included obtaining a history; examining the patient; pulse oximetry; ordering and review of studies; arranging urgent treatment with development of a management plan; evaluation of patient's response to treatment; frequent reassessment; and, discussions with other providers. This critical care time was performed to assess and manage the high probability of imminent, life-threatening deterioration that could result in multi-organ failure. It was exclusive of separately billable procedures and treating other patients and teaching time. Please see MDM section and the rest of the note for further information on patient assessment and treatment. <Emiliana Lockwood - Last Filed: 12/29/24 15:12> Addendum Narrative: Patient is a 78-year-old male with medical history notable for paraplegia, lives in the emergency room with concerns for gross hematuria. Prior providers evaluated patient. Ordered labs CT abdomen pelvis with contrast. We also consulted patient's urology team at [facility], they recommended CBI to be run until urine was clot free. Patient had been on CBI overnight, urine cleared, patient remained hemodynamically stable. UA showed urinary tract infection antibiotics provided. CT scan showed cystitis versus bladder cancer. CBI running clear, catheter exchanged to patient's indwelling Euceda catheter and patient having gross hematuria again following discontinuation of CBI. Given this patient did not feel comfortable being discharged to home. Spoke with patient and patient's nurse, will monitor the patient and see if urine starts to run clear again on its own, if not we will initiate CBI again. 1300: [facility] reviewing case for possible transfer. 1447: Discussed test HPI, PMHx, lab, radiology results and/or management with urologist Dr. Cook. Accepts the patient for transfer. 1455: Discussed test HPI, PMHx, lab, radiology results and/or management with Dr. Mata, unsure to transfer the patient now or later, ED to ED or not.
--- NOTE | 2024-12-29 07:15 | PC.NURSE ---
Pt. here from home to room 8, pt. had blood in his carroll catheter tubing and critical care physician assistant was concerned and called EMS.
--- NOTE | 2024-12-29 07:30 | PC.NURSE ---
Pt. states he had a BM and needs to be cleaned, Pt. has redness/healing pressure wound to his buttocks, thick white cream on buttocks, BM was large soft and brown, pt. cleaned and states thank you. Pt. has redness and purple veins that appear on his mid right calf on right leg, pt. states it is a healed wound. Pt. has open wounds to the top of both great toes, wounds are healing and not draining any fluid, pt. states he is being seen at the wound center for his wounds. Pt. has a carroll that is draining dark red blood with small blood clots. Pt. has bruising to his upper extremities bilateral. Pt. is very well kept, pt. states he has been wheel chair bound for 19 years. No s/s of distress noted at this time.
--- NOTE | 2024-12-29 07:52 | PC.NURSE ---
Pt. has a neonatal intensive care unit nurse visiting him at this time.
--- NOTE | 2024-12-29 08:18 | PC.NURSE ---
called distribution for CBI tubing, no answer, called [facility] Palliative and Eduarda states she will look for it and bring it to ER for bed 8.
[2024-12-29] MEDS: BACLOFEN 10 MG TABLET 20 MG PO (08:48)
[2024-12-29] MEDS: DAPAGLIFLOZIN PROPANEDIOL 5 MG TABLET PO (08:49)
[2024-12-29] MEDS: PREGABALIN 50 MG CAPSULE 100 MG PO (08:50)
[2024-12-29] MEDS: METOPROLOL SUCCINATE XL 25 MG TABCR PO (08:50)
[2024-12-29] MEDS: DOCUSATE SOD 100 MG CAPSULE PO (08:51)
--- NOTE | 2024-12-29 11:48 | PC.CC ---
Addendum entered by Sarah Aguayo RN 12/29/24 17:54: received 2nd call from [facility] to reschedule roll picker time to 1845. I spoke to Dr. Del Castillo and is agreeable however can not delay any more. Addendum entered by Sarah Aguayo RN 12/29/24 16:33: 1622: called and spoke to bedside nurse Yuki. provided her with transport ETA. Also informed her that transfer info is updated in the ED tracker. 1605: called [facility] to set up transport, was put on hold a couple of times with a long wait times. Transport set up for 1700. ED tracker updated with all transfer info 1553: Transfer packet and CD X1 created and given to MYKE Dodson. Addendum entered by Sarah Aguayo RN 12/29/24 15:41: 1517: spoke to Bharat w/ [facility], she stated she has called me twice, i informed her i have not received any calls from her. She stated she has called the number provided but could not provide the phone number. She verified that the patient has been accepted by Dr. Mata at 1506. Informed Dr. Del Castillo. 1506: received call from Dr. Del Castillo and she provided an update. She stated she has spoke to Dr. Loera (uro) and Dr. Mata in [facility]. I informed her i have not received any calls with transfer updates. I will call [facility] to verify. Addendum entered by Sarah Aguayo RN 12/29/24 13:49: 1347: called [facility] to f/u, spoke to Bharat. She stated she will be taking over this case. She stated she will reach out to the Urologist and call back. Original Note: 1139: spoke to Riya ROMAN, she stated it was closed out this morning since patient was to discharge home, but will reopen. Dr. Del Castillo ER note and up-to-date labs and vs faxed. Elsa will review and call back. 1135: received call from Dr. Del Castillo to reinitiate transfer request for Urology for hematuria after CBI.
== END 2024-12-29 18:50 | disposition short-term general hospital (02) ==
PROVIDERS: Emergency Medicine; Nurse Practitioner Family; Emergency Provider Emergency Medicine; PCP Family Medicine
DX: R31.9 Hematuria, unspecified (principal); E78.5 Hyperlipidemia, unspecified; G82.20 Paraplegia, unspecified; I10 Essential (primary) hypertension; I25.10 Atherosclerotic heart disease of native coronary artery without angina pectoris; Z79.82 Long term (current) use of aspirin; Z95.1 Presence of aortocoronary bypass graft
CPT/HCPCS: 36415; 51702; 71045; 74177; 80053; 81001; 85025; 85610; 85730; 86850; 86900; 86901; 96361; 96365; 99284; A4314; A4649; J0696; J7120; J8499; Q9967; A9270

== ENCOUNTER → 2025-01-16 | Outpatient (CLI) | payer MEDICARE, BC, SELFPAY | END | disposition home or self-care (01) | LOC: SWHD 09:57 | PROVIDERS: PCP Family Medicine; Referring Provider Family Medicine; Visit Provider Student in an Organized Health Care Education/Training Program | DX: I96 Gangrene, not elsewhere classified (principal); S91.101A Unspecified open wound of right great toe without damage to nail, initial encounter; S91.102A Unspecified open wound of left great toe without damage to nail, initial encounter; X58.XXXA Exposure to other specified factors, initial encounter; L89.619 Pressure ulcer of right heel, unspecified stage; G82.20 Paraplegia, unspecified; I10 Essential (primary) hypertension; H91.90 Unspecified hearing loss, unspecified ear; E11.9 Type 2 diabetes mellitus without complications; Z79.4 Long term (current) use of insulin | CPT/HCPCS: 99213; A9270; G0463 ==

== ENCOUNTER → 2025-02-04 | Outpatient (CLI) | payer MEDICARE, BC, SELFPAY | END | disposition home or self-care (01) | PROVIDERS: Referring Provider Student in an Organized Health Care Education/Training Program; Visit Provider Student in an Organized Health Care Education/Training Program | DX: E11.621 Type 2 diabetes mellitus with foot ulcer (principal) | CPT/HCPCS: 87070; 87075; 87205 ==

== ENCOUNTER → 2025-02-04 | Outpatient (CLI) | payer MEDICARE, BC, SELFPAY | END | disposition home or self-care (01) | PROVIDERS: PCP Family Medicine; Referring Provider Family Medicine; Visit Provider Student in an Organized Health Care Education/Training Program | DX: I96 Gangrene, not elsewhere classified (principal); S91.101A Unspecified open wound of right great toe without damage to nail, initial encounter; S91.102A Unspecified open wound of left great toe without damage to nail, initial encounter; X58.XXXA Exposure to other specified factors, initial encounter; L89.619 Pressure ulcer of right heel, unspecified stage; G82.20 Paraplegia, unspecified; I10 Essential (primary) hypertension; H91.90 Unspecified hearing loss, unspecified ear; E11.9 Type 2 diabetes mellitus without complications; Z79.4 Long term (current) use of insulin | CPT/HCPCS: 11044; 87070; 87075; 87205 ==